=== PATIENT | female | born 1970 | race Caucasian/White ===

== ENCOUNTER 2017-03-24 04:06 | Observation (INO) | payer BC ==
[2017-03-24] MEDS ORDERED: NITROGLYCERIN SL TABS 0.4 MG TAB SUBLINGUAL STA (04:28)
[2017-03-24] MEDS ORDERED: ASPIRIN 81 MG PO STA (04:28)
[2017-03-24] MEDS ORDERED: NITROGLYCERIN OINT 1 INCH/GM PACKET TOPICAL STA (04:28)
--- NOTE | 2017-03-24 04:29 | ED ---
Chest Pain HPI - General Chief Complaint: Extremity Problem,Nontraumatic Stated Complaint: L arm pain, High BP Time Seen by Provider: 03/24/17 04:19 Source: patient Mode of arrival: ambulatory Limitations: no limitations - History of Present Illness Initial Comments: This patient is a 47-year-old woman who presents to be evaluate for pain that goes across her upper back and radiates into her left arm. The patient states that she has been having the pains intermittently for about a week. The pains had been isolated to her back. The pain became constant tonight before she came in to be seen here, and tonight has been radiating to the arm. In addition tonight she has had some associated diaphoresis and nausea. Patient states that she smokes about a pack per day for many years now. She has not previously had a stress test or heart catheterization. Complaint: other (Upper back pain) Onset/Timin -: week(s) Onset: during rest Pain Location: other (Upper back) Pain Radiation: LUE Consistency: intermittent Anginal Symptoms: nausea, diaphoresis - Related Data Home Medications Medication Instructions Recorded Confirmed Aspirin 81 mg PO ONCE 03/24/17 03/24/17 Cholecalciferol [Vitamin D3] 1,000 unit PO DAILY 03/24/17 03/24/17 Lisinopril-Hctz 10-12.5 mg 1 tab PO DAILY 03/24/17 03/24/17 [Zestoretic 10-12.5] Allergies Allergy/AdvReac Type Severity Reaction Status Date / Time No Known Allergies Allergy Verified 03/24/17 07:14 Review of Systems ROS Statement: Those systems with pertinent positive or pertinent negative responses have been documented in the HPI. ROS Other: All systems not noted in ROS Statement are negative. Constitutional: Denies: fever, chills, weakness Respiratory: Reports: dyspnea. Denies: cough, wheezes Cardiovascular: Reports: chest pain. Denies: palpitations, edema, syncope Gastrointestinal: Reports: nausea. Denies: abdominal pain, vomiting, diarrhea Genitourinary: Denies: dysuria, hematuria Musculoskeletal: Denies: back pain Skin: Denies: rash Neurological: Denies: headache, weakness, numbness EKG Findings - EKG Results: EKG: interpreted by ERMD, WNL, sinus rhythm (Rate 67 bpm), normal axis, normal QRS, normal ST/T, no acute changes Past Medical History Past Medical History: Hypertension History of Any Multi-Drug Resistant Organisms: None Reported Past Surgical History: Section Additional Past Surgical History / Comment(s): partial thyroidectomy Past Psychological History: No Psychological Hx Reported Smoking Status: Current every day smoker Past Alcohol Use History: None Reported Past Drug Use History: None Reported - Past Family History Father Family Medical History: Coronary Artery Disease (CAD), Liver Disease Additional Family Medical History / Comment(s): Father has end stage liver disease. He had cardiac stents placed when he was in his 70s Mother Family Medical History: CVA/TIA Additional Family Medical History / Comment(s): Mother had a CVA during gallbladder surgery when she was 68yrs old. She is still living. General Exam Limitations: no limitations General appearance: alert, in no apparent distress Head exam: Present: atraumatic, normocephalic Eye exam: Present: normal appearance. Absent: scleral icterus, conjunctival injection ENT exam: Present: normal oropharynx Neck exam: Present: normal inspection Respiratory exam: Present: normal lung sounds bilaterally. Absent: respiratory distress, wheezes, rales, rhonchi, stridor, chest wall tenderness Cardiovascular Exam: Present: regular rate, normal rhythm, normal heart sounds. Absent: systolic murmur, diastolic murmur, rubs, gallop GI/Abdominal exam: Present: soft. Absent: distended, tenderness, guarding, rebound Extremities exam: Present: normal inspection, normal capillary refill. Absent: pedal edema, calf tenderness Back exam: Present: normal inspection. Absent: CVA tenderness (R), CVA tenderness (L) Neurological exam: Present: alert Skin exam: Present: warm, dry, intact, normal color. Absent: rash Course Vital Signs 03/24/17 03/24/17 03/24/17 04:10 05:14 06:19 Temperature 97.5 F L Pulse Rate 85 64 67 Respiratory 18 29 H 17 Rate Blood Pressure 179/95 159/86 157/80 O2 Sat by Pulse 98 97 94 L Oximetry 03/24/17 03/24/17 03/24/17 07:03 07:49 09:08 Temperature 97.9 F Pulse Rate 72 80 78 Respiratory 18 16 16 Rate Blood Pressure 134/69 124/62 O2 Sat by Pulse 97 96 99 Oximetry Chest Pain MDM - MDM This patient is a 47-year-old woman presenting with pain across the upper back now radiating into her left arm. Tonight their are features that could be anginal. She does have risk factors for development of CAD, and patient will therefore be admitted for additional telemetry monitoring and cardiac enzymes. Disposition Clinical Impression: Left arm pain, Back pain Disposition: ADMITTED IP TO THIS HOSP Condition: Good
[2017-03-24 04:36] LABS: Basophils # (A) 0.1 k/uL (0-0.2); Basophils % (A) 1 %; Eosinophils # (A) 0.3 k/uL (0-0.7); Eosinophils % (A) 3 %; HCT 40.2 % (34.0-46.0); HGB 12.6 gm/dL (11.4-16.0); Lymphocytes # (A) 2.1 k/uL (1.0-4.8); Lymphocytes % (A) 28 %; MCH 24.9 pg (25.0-35.0); MCHC 31.3 g/dL (31.0-37.0); MCV 79.7 fL (80.0-100.0); Mean Platelet Volume 8.2; Monocytes # (A) 0.3 k/uL (0-1.0); Monocytes % (A) 4 %; Neutrophils # (A) 4.7 k/uL (1.3-7.7); Neutrophils % (A) 62 %; Platelet Count 241 k/uL (150-450); RBC 5.05 m/uL (3.80-5.40); RDW 13.4 % (11.5-15.5); WBC 7.6 k/uL (3.8-10.6)
--- NOTE | 2017-03-24 04:45 | XR ---
EXAM: XR Chest, 1 View CLINICAL HISTORY: Reason: chest pain TECHNIQUE: Frontal view of the chest. COMPARISON: No relevant prior studies available. FINDINGS: Lungs: Unremarkable. No consolidation. Pleural space: Unremarkable. No pneumothorax. Heart: Unremarkable. No cardiomegaly. Mediastinum: Unremarkable. Bones/joints: Unremarkable. IMPRESSION: No lobar consolidation or pulmonary edema.
[2017-03-24 04:48] LABS: ALT 36 U/L (9-52); AST 17 U/L (14-36); Albumin 3.9 g/dL (3.5-5.0); Alkaline Phosphatase 65 U/L (38-126); Anion Gap 9 mmol/L; Blood Urea Nitrogen 19 mg/dL (7-17); Calcium 9.4 mg/dL (8.4-10.2); Carbon Dioxide 23 mmol/L (22-30); Chloride 106 mmol/L (98-107); Glucose 105 mg/dL (74-99); Magnesium 1.7 mg/dL (1.6-2.3); Potassium 4.2 mmol/L (3.5-5.1); Sodium 138 mmol/L (137-145); Total Bilirubin 0.5 mg/dL (0.2-1.3); Total Protein 6.5 g/dL (6.3-8.2)
[2017-03-24 04:52] LABS: D-Dimer 0.47 mg/L FEU (<0.60)
[2017-03-24 04:57] LABS: INR 1.1 (<1.2); Partial Thromboplastin Time 23.1 sec (22.0-30.0); Prothrombin Time 10.5 sec (9.0-12.0)
[2017-03-24 05:24] LABS: Creatine Kinase 68 U/L (30-135)
[2017-03-24 05:37] LABS: Creatine Kinase MB 0.6 ng/mL (0.0-2.4); Troponin I <0.012 ng/mL (0.000-0.034)
[2017-03-24] MEDS ORDERED: MORPHINE SULFATE 5 MG/ML SYRINGE IV STA (06:15)
[2017-03-24] MEDS ORDERED: ONDANSETRON 4 MG/2 ML VIAL IVP STA (06:15)
[2017-03-24] MEDS ORDERED: MORPHINE SULFATE 4 MG/ML SYRINGE IV STA (06:15)
[2017-03-24] MEDS ORDERED: KETOROLAC 30 MG/ML 1 ML VIAL IVP STA (06:25)
[2017-03-24] MEDS ORDERED: NITROGLYCERIN SL TABS 0.4 MG TAB SUBLINGUAL PRN (06:38)
[2017-03-24] MEDS: LISINOPRIL-HCTZ 10-12.5 MG 1 EACH TAB PO SCH (09:32)
[2017-03-24 10:48] LABS: Creatine Kinase 55 U/L (30-135)
[2017-03-24 11:01] LABS: Creatine Kinase MB 0.5 ng/mL (0.0-2.4); Troponin I <0.012 ng/mL (0.000-0.034)
--- NOTE | 2017-03-24 12:33 | P.CRDCN ---
History of Present Illness Consult date: 03/24/17 Requesting physician: Korey Hawthorne Consult reason: chest pain Chief complaint: Chest pain History of present illness: This is a pleasant 47-year-old female with history of hypertension, borderline hyperlipidemia, nicotine dependence, she smokes approximately one pack of cigarettes per day, family history of premature coronary artery disease , both grandfathers had myocardial infarctions before the age of 50, her father just underwent angioplasty and stenting of the LAD. Patient presents to the hospital with symptoms of chest discomfort with radiation to the left arm and scapula area, patient states she became extremely diaphoretic and nauseated, for this reason she came to the emergency room for further evaluation. He states that she checked her blood pressure at home at that time which was noted to be 180/106. EKG on presentation here showed a normal sinus rhythm with nonspecific ST-T wave changes in the anterior leads. The pressure on arrival here 157/80, heart rate in the 60s, 94% on room air. Blood pressure this morning 124/70 with a heart rate in the 60s, 96% on room air. White blood cell count 7.6, hemoglobin 12.6, platelet count 241. D-dimer 0.4, potassium 4.2, BUN 19, creatinine 0.8. Troponins negative 2. Chest x-ray did not reveal any acute cardiopulmonary process. At the time of my examination this morning, patient states she has some mild upper back discomfort different than the discomfort she presented with. Past Medical History Past Medical History: Hypertension Additional Past Medical History / Comment(s): Toxemia with History of Any Multi-Drug Resistant Organisms: None Reported Past Surgical History: Section Additional Past Surgical History / Comment(s): partial thyroidectomy d/t goiter. Smoking Status: Current every day smoker - Past Family History Father Family Medical History: Coronary Artery Disease (CAD), Liver Disease Additional Family Medical History / Comment(s): Father has end stage liver disease. He had cardiac stents placed when he was in his 70s Mother Family Medical History: CVA/TIA Additional Family Medical History / Comment(s): Mother had a CVA during gallbladder surgery when she was 68yrs old. She is still living. Medications and Allergies Home Medications Medication Instructions Recorded Confirmed Type Aspirin 81 mg PO ONCE 03/24/17 03/24/17 History Cholecalciferol [Vitamin D3] 1,000 unit PO DAILY 12/28/17 12/28/17 History Lisinopril-Hctz 10-12.5 mg 1 tab PO DAILY 03/24/17 03/24/17 History [Zestoretic 10-12.5] Allergies Allergy/AdvReac Type Severity Reaction Status Date / Time No Known Allergies Allergy Verified 03/24/17 07:14 Physical Exam Vitals: Vital Signs Temp Pulse Pulse Resp BP BP Pulse Ox 03/24/17 09:32 97.7 F 60 16 125/73 96 03/24/17 09:08 97.9 F 78 16 99 03/24/17 07:49 80 16 124/62 96 03/24/17 07:03 72 18 134/69 97 03/24/17 06:19 67 17 157/80 94 L 03/24/17 05:14 64 29 H 159/86 97 03/24/17 04:10 97.5 F L 85 18 179/95 98 Intake and Output 03/23/17 03/24/17 03/24/17 22:59 06:59 14:59 Other: Weight 86.183 kg PHYSICAL EXAMINATION: HEENT: Head is atraumatic, normocephalic. Pupils equal, round. Neck is supple. There is no elevated jugular venous pressure. HEART EXAMINATION: Heart S1, S2 normal. No murmur or gallop heard. CHEST EXAMINATION: Lungs are clear with fine expiratory wheezes noted . No chest wall tenderness is noted on palpation or with deep breathing. ABDOMEN: Soft, nontender. Bowel sounds are heard. No organomegaly noted. EXTREMITIES: 2+ peripheral pulses with no evidence of peripheral edema and no calf tenderness noted. NEUROLOGIC patient is awake, alert and oriented -3. . Results 03/24/17 04:26 03/24/17 04:26 Cardiac Enzymes 03/24/17 03/24/17 03/24/17 Range/Units 04:26 04:26 09:59 AST 17 (14-36) U/L CK-MB (CK-2) 0.6 0.5 (0.0-2.4) ng/mL Troponin I <0.012 <0.012 (0.000-0.034) ng/mL Coagulation 03/24/17 Range/Units 04:26 PT 10.5 (9.0-12.0) sec APTT 23.1 (22.0-30.0) sec CBC 03/24/17 Range/Units 04:26 WBC 7.6 (3.8-10.6) k/uL RBC 5.05 (3.80-5.40) m/uL Hgb 12.6 (11.4-16.0) gm/dL Hct 40.2 (34.0-46.0) % Plt Count 241 (150-450) k/uL Comprehensive Metabolic Panel 03/24/17 Range/Units 04:26 Sodium 138 (137-145) mmol/L Potassium 4.2 (3.5-5.1) mmol/L Chloride 106 (98-107) mmol/L Carbon Dioxide 23 (22-30) mmol/L BUN 19 H (7-17) mg/dL Creatinine 0.80 (0.52-1.04) mg/dL Glucose 105 H (74-99) mg/dL Calcium 9.4 (8.4-10.2) mg/dL AST 17 (14-36) U/L ALT 36 (9-52) U/L Alkaline Phosphatase 65 (38-126) U/L Total Protein 6.5 (6.3-8.2) g/dL Albumin 3.9 (3.5-5.0) g/dL Current Medications Generic Name Dose Route Start Last Admin Trade Name Freq PRN Reason Stop Dose Admin Aspirin 325 mg 03/25/17 09:00 Aspirin PO DAILY [facility] Lisinopril/HCTZ 1 each 03/24/17 09:00 03/24/17 09:32 Zestoretic 10-12.5 PO Not Given DAILY [facility] Nitroglycerin 0.4 mg 03/24/17 06:38 Nitrostat SUBLINGUAL Q5M PRN Chest Pain Intake and Output 03/23/17 03/24/17 03/24/17 22:59 06:59 14:59 Other: Weight 86.183 kg 03/24/17 04:26 03/24/17 04:26 EKG Interpretations (text) EKG shows a normal sinus rhythm with nonspecific ST-T wave changes in the anterior leads Assessment and Plan Plan: Assessment and plan #1 chest discomfort, with radiation to the scapular area and down the left arm. Positive associated diaphoresis and nausea. Initial troponins negative 2. EKG shows normal sinus rhythm with nonspecific ST-T wave changes in the anterior leads #2 accelerated hypertension #3 history of hypertension #4 borderline hyperlipidemia, untreated #5 nicotine dependence, patient's smokes one package of cigarettes per day #6 family history of premature coronary artery disease Plan We will repeat an EKG. We will also request an echocardiogram with Doppler study be performed. Continue aspirin, lisinopril hydrochlorothiazide, obtain third troponin value. Patient's symptoms are somewhat concerning for acute coronary syndrome, based on her multiple risk factors and presentation , patient has been given the option to undergo stress testing or cardiac catheterization for definitive diagnosis, the risks and the benefits were explained to the patient in detail and she is willing to proceed. DNP note has been reviewed, I agree with a documented findings and plan of care. Patient was seen and examined.
--- NOTE | 2017-03-24 12:41 | ECHOF ---
Referral Reason:chest pain MEASUREMENTS -------- HEIGHT: 157.5 cm WEIGHT: 86.2 kg BP: 125/73 RVIDd: 2.7 cm (< 3.3) IVSd: 1.2 cm (0.6 - 1.1) LVIDd: 4.5 cm (3.9 - 5.3) LVPWd: 1.2 cm (0.6 - 1.1) IVSs: 1.8 cm LVIDs: 2.4 cm LVPWs: 2.0 cm LA Diam: 3.8 cm (2.7 - 3.8) LAESV Index (A-L): 26.50 ml/m Ao Diam: 2.8 cm (2.0 - 3.7) AV Cusp: 2.0 cm (1.5 - 2.6) MV EXCURSION: 14.317 mm (> 18.000) MV EF SLOPE: 68 mm/s (70 - 150) EPSS: 0.6 cm MV E Erick: 1.00 m/s MV DecT: 296 ms MV A Erick: 0.79 m/s MV E/A Ratio: 1.27 FINDINGS -------- Sinus rhythm. This was a technically adequate study. The left ventricular size is normal. There is borderline concentric left ventricular hypertrophy. Overall left ventricular systolic function is normal with, an EF between 55 - 60 %. The right ventricle is normal in size. Normal LA size by volume 22+/-6 ml/m2. The right atrium is normal in size. The aortic valve is trileaflet and appears structurally normal. There is trace mitral regurgitation. The tricuspid valve appears structurally normal. Trace/mild (physiologic) pulmonic regurgitation. The aortic root size is normal. The inferior vena cava is mildly dilated. Echo free space may represent effusion or a pericardial fat pad. There is no pericardial effusion. CONCLUSIONS -------- 1. Sinus rhythm. 2. This was a technically adequate study. 3. The left ventricular size is normal. 4. There is borderline concentric left ventricular hypertrophy. 5. Overall left ventricular systolic function is normal with, an EF between 55 - 60 %. 6. The right ventricle is normal in size. 7. Normal LA size by volume 22+/-6 ml/m2. 8. The right atrium is normal in size. 9. The aortic valve is trileaflet and appears structurally normal. 10. There is trace mitral regurgitation. 11. The tricuspid valve appears structurally normal. 12. Trace/mild (physiologic) pulmonic regurgitation. 13. The aortic root size is normal. 14. The inferior vena cava is mildly dilated. 15. Echo free space may represent effusion or a pericardial fat pad. ALUMINUM WELDER: Molly Helms RDCS
[2017-03-24] MEDS ORDERED: ACETAMINOPHEN TAB 325 MG TAB PO PRN (14:20)
--- NOTE | 2017-03-24 16:47 | P.HPIM ---
History of Present Illness Patient is a pleasant 47-year-old female with history of hypertension , borderline hyperlipidemia, nicotine dependence, she smokes approximately one pack of cigarettes per day, family history of premature coronary artery disease , both grandfathers had myocardial infarctions before the age of 50, her father just underwent angioplasty and stenting of the LAD. Patient presents to the hospital with symptoms of chest discomfort with radiation to the left arm and scapula area, patient states she became extremely diaphoretic and nauseated, for this reason she came to the emergency room for further evaluation. Assessment is not associated with food not nonpruritic in nature because of the risk factors and the some nonspecific ST-T wave changes in the EKG and typical nature of the chest pain cardiology is planning on cardiac catheterization had extensive discussion with the patient today. Review of Systems REVIEW OF SYSTEMS: CONSTITUTIONAL: No fever, no malaise, no fatigue. HEENT: No recent visual problems or hearing problems. Denied any sore throat. CARDIOVASCULAR: No orthopnea, PND, no palpitations, no syncope. PULMONARY: No shortness of breath, no cough, no hemoptysis. GASTROINTESTINAL: No diarrhea, no nausea, no vomiting, no abdominal pain. Normoactive bowel sounds. NEUROLOGICAL: No headaches, no weakness, no numbness. HEMATOLOGICAL: Denies any bleeding or petechiae. GENITOURINARY: Denies any burning micturition, frequency, or urgency. MUSCULOSKELETAL/RHEUMATOLOGICAL: Denies any joint pain, swelling, or any muscle pain. ENDOCRINE: Denies any polyuria or polydipsia. The rest of the 14-point review of systems is negative. Past Medical History Past Medical History: Hypertension Additional Past Medical History / Comment(s): Toxemia with History of Any Multi-Drug Resistant Organisms: None Reported Past Surgical History: Section Additional Past Surgical History / Comment(s): partial thyroidectomy d/t goiter. Smoking Status: Current every day smoker - Past Family History Father Family Medical History: Coronary Artery Disease (CAD), Liver Disease Additional Family Medical History / Comment(s): Father has end stage liver disease. He had cardiac stents placed when he was in his 70s Mother Family Medical History: CVA/TIA Additional Family Medical History / Comment(s): Mother had a CVA during gallbladder surgery when she was 68yrs old. She is still living. Medications and Allergies Home Medications Medication Instructions Recorded Confirmed Type Aspirin 81 mg PO ONCE 03/24/17 03/24/17 History Cholecalciferol [Vitamin D3] 1,000 unit PO DAILY 03/24/17 03/24/17 History Lisinopril-Hctz 10-12.5 mg 1 tab PO DAILY 03/24/17 03/24/17 History [Zestoretic 10-12.5] Allergies Allergy/AdvReac Type Severity Reaction Status Date / Time No Known Allergies Allergy Verified 03/24/17 07:14 Physical Exam Vitals: Vital Signs Temp Pulse Pulse Resp BP BP Pulse Ox 03/24/17 15:00 97 F L 80 16 126/64 95 03/24/17 14:50 60 16 03/24/17 09:32 97.7 F 60 16 125/73 96 03/24/17 09:08 97.9 F 78 16 99 03/24/17 07:49 80 16 124/62 96 03/24/17 07:03 72 18 134/69 97 03/24/17 06:19 67 17 157/80 94 L 03/24/17 05:14 64 29 H 159/86 97 03/24/17 04:10 97.5 F L 85 18 179/95 98 Intake and Output 03/24/17 03/24/17 03/24/17 06:59 14:59 22:59 Intake Total 480 Balance 480 Intake: Oral 480 Other: Weight 86.183 kg PHYSICAL EXAMINATION: GENERAL: The patient is alert and oriented x3, not in any acute distress. Well developed, well nourished. HEENT: Pupils are round and equally reacting to light. EOMI. No scleral icterus. No conjunctival pallor. Normocephalic, atraumatic. No pharyngeal erythema. No thyromegaly. CARDIOVASCULAR: S1 and S2 present. No murmurs, rubs, or gallops. PULMONARY: Chest is clear to auscultation, no wheezing or crackles. ABDOMEN: Soft, nontender, nondistended, normoactive bowel sounds. No palpable organomegaly. MUSCULOSKELETAL: No joint swelling or deformity. EXTREMITIES: No cyanosis, clubbing, or pedal edema. NEUROLOGICAL: Gross neurological examination did not reveal any focal deficits. SKIN: No rashes. Results CBC & Chem 7: 03/24/17 04:26 03/24/17 04:26 Labs: Abnormal Lab Results - Last 24 Hours (Table) 03/24/17 03/24/17 Range/Units 04:26 04:26 MCV 79.7 L (80.0-100.0) fL MCH 24.9 L (25.0-35.0) pg BUN 19 H (7-17) mg/dL Glucose 105 H (74-99) mg/dL Thrombosis Risk Factor Assmnt - Choose All That Apply Any of the Below Risk Factors Present?: Yes Each Factor Represents 1 point: Age 41-60 years, Obesity (BMI >25) Other Risk Factors: No Other congenital or acquired thrombophilia - If yes, enter type in comment: No Thrombosis Risk Factor Assessment Total Risk Factor Score: 2 Thrombosis Risk Factor Assessment Level: Low Risk Assessment and Plan Plan: 1 chest pain: Patient does have some tibial which is a of cardiac chest pain but because of which the patient may undergo cardiac catheterization today -Hypertension -Hyperlipidemia -Nicotine dependence For above-mentioned chronic medical problems patient will be resumed on appropriate home medications.
[2017-03-24 16:53] LABS: Creatine Kinase 53 U/L (30-135)
[2017-03-24 17:06] LABS: Creatine Kinase MB 0.4 ng/mL (0.0-2.4); Troponin I <0.012 ng/mL (0.000-0.034)
[2017-03-25 00:57] VITALS: RESP 18
[2017-03-25] MEDS ORDERED: ONDANSETRON 4 MG/2 ML VIAL IVP PRN (06:34)
[2017-03-25 06:45] LABS: Cholesterol 198 mg/dL (<200); HDL Cholesterol 38 mg/dL (40-60); LDL Cholesterol,Calculated 124 mg/dL (0-99); Triglycerides 178 mg/dL (<150)
[2017-03-25] MEDS ORDERED: ASPIRIN 325 MG TAB PO SCH (09:00)
[2017-03-25] MEDS: LISINOPRIL-HCTZ 10-12.5 MG 1 EACH TAB PO SCH (11:59)
[2017-03-25 12:07] VITALS: BP 110/62; PULSE 70; TEMP 98.1
--- NOTE | 2017-03-25 12:51 | ECHOS ---
STRESS ECHOCARDIOGRAM DATE OF SERVICE: 03/25/2017 INDICATIONS: Chest pain. MEDICATIONS: Lisinopril HCTZ BASELINE HEART RATE: 71 BASELINE BLOOD PRESSURE: 141/62 MAXIMUM HEART RATE: 155 MAXIMUM BLOOD PRESSURE: 180/69 85% MPHR: 146 100% MPHR: 172 METS: 9.7 MAXIMUM STAGE REACHED: III TOTAL EXERCISE TIME: 8 minutes CLINICAL INFORMATION: Baseline EKG revealed normal sinus rhythm without significant ST-T changes. Patient walked on standard Juan protocol for 8 minutes, achieved a maximal heart rate of 155 beats per minute which is more than 85% of predicted maximal. She developed fatigue and shortness of breath but did not have angina. EKG did not reveal any ST-segment changes to indicate ischemia. By EKG criteria, this is a negative stress test with fair exercise capacity. Baseline echo images revealed normal wall motion wall thickening of all segments. Because of suboptimal images, the patient received some Definity to improve the visualization of contractility. At peak exercise, there was good augmentation of left ventricular wall motion and wall thickening of all segments suggesting that there is no evidence of stress-induced ischemia on this study. IMPRESSION: 1. By EKG criteria, this is a negative stress test with fair exercise capacity. 2. Normal stress echocardiogram without evidence of ischemia. MMODL / IJN: [id number] /
--- NOTE | 2017-03-25 16:29 | P.DS ---
Providers Date of admission: 03/24/17 06:38 Attending physician: Korey Hawthorne Consults: 03/24/17 06:38 Consult Physician Routine Consulting Provider: Connor Perez Consult Reason/Comments: back pain radiating to arm Do you want consulting provider notified?: Yes Primary care physician: Lino Thomas Hospital Course: Patient was admitted secondary to chest pain,underwent stress test which was negative. Patient was cleared for discharge from cardiology perspective. 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 PHYSICAL EXAMINATION: GENERAL: The patient is alert and oriented x3, not in any acute distress. Well developed, well nourished. HEENT: Pupils are round and equally reacting to light. EOMI. No scleral icterus. No conjunctival pallor. Normocephalic, atraumatic. No pharyngeal erythema. No thyromegaly. CARDIOVASCULAR: S1 and S2 present. No murmurs, rubs, or gallops. PULMONARY: Chest is clear to auscultation, no wheezing or crackles. ABDOMEN: Soft, nontender, nondistended, normoactive bowel sounds. No palpable organomegaly. MUSCULOSKELETAL: No joint swelling or deformity. EXTREMITIES: No cyanosis, clubbing, or pedal edema. NEUROLOGICAL: Gross neurological examination did not reveal any focal deficits. SKIN: No rashes. for further details of chronic medical problems and the had another hospitalization course please refer to my dictation of H&P from yesterday Patient Condition at Discharge: Good Plan - Discharge Summary Discharge Rx Participant: No New Discharge Prescriptions: No Action Lisinopril-Hctz 10-12.5 mg [Zestoretic 10-12.5] 1 tab PO DAILY Cholecalciferol [Vitamin D3] 1,000 unit PO DAILY Aspirin 81 mg PO ONCE Discharge Medication List Aspirin 81 mg PO ONCE 03/24/17 [History] Cholecalciferol [Vitamin D3] 1,000 unit PO DAILY 03/24/17 [History] Lisinopril-Hctz 10-12.5 mg [Zestoretic 10-12.5] 1 tab PO DAILY 03/24/17 [History ] Follow up Appointment(s)/Referral(s): Connor Perez MD [STAFF PHYSICIAN] - 04/07/17 11:30 am Lino Thomas DO [Primary Care Provider] - 1-2 days Patient Instructions/Handouts: Chest Pain (DC) Discharge Disposition: HOME SELF-CARE
== END 2017-03-25 14:54 | disposition home or self-care (01) ==
LOC: EC 04:06 → 6SEL 06:38
PROVIDERS: ADMIT Hospitalist; ATTEND Hospitalist
DX: R07.89 Other chest pain (principal); M79.602 Pain in left arm; M54.9 Dorsalgia, unspecified; R11.0 Nausea; R61 Generalized hyperhidrosis; E78.5 Hyperlipidemia, unspecified; I10 Essential (primary) hypertension; F17.210 Nicotine dependence, cigarettes, uncomplicated; M54.6 Pain in thoracic spine; Z79.82 Long term (current) use of aspirin; Z79.899 Other long term (current) drug therapy; Z82.49 Family history of ischemic heart disease and other diseases of the circulatory system; Z82.3 Family history of stroke; E66.9 Obesity, unspecified; Z68.33 Body mass index [BMI] 33.0-33.9, adult
CPT/HCPCS: 96374; 99285; 36415; 93005; 93350; 93017; 93306; 85379; 80061; 80053; 82550; 82553; 83735; 84484; 85025; 85610; 85730; 71010; G0378 ×2; J2405; Q9957

== ENCOUNTER 2018-07-26 01:51 | Emergency (ER) | payer BC ==
[2018-07-26 02:05] VITALS: BP 140/80; PULSE 79; RESP 18; TEMP 98.3
[2018-07-26] MEDS ORDERED: KETOROLAC 60 MG/2 ML VIAL IM STA (02:49)
[2018-07-26] MEDS ORDERED: DIAZEPAM 5 MG/ML 2 ML INJ IM ONE (02:49)
[2018-07-26] MEDS ORDERED: predniSONE 20 MG TAB PO STA (02:49)
[2018-07-26] MEDS ORDERED: HYDROmorphone 1 MG/ML 1 ML SYRINGE IVP STA (03:30)
[2018-07-26] MEDS ORDERED: HYDROmorphone 1 MG/ML 1 ML SYRINGE IM STA (04:12)
--- NOTE | 2018-07-26 04:51 | ED ---
Neck Injury/Pain HPI - General Chief Complaint: Neck Pain/Injury Stated Complaint: Neck Pain Time Seen by Provider: 07/26/18 02:06 Mode of arrival: ambulatory Limitations: no limitations - History of Present Illness Initial Comments: This patient is a 48-year-old woman who presents to be evaluated for neck pain. She states that the symptoms had started approximately 12 hours ago when she coughed. The patient states that she felt like something had popped there. The patient states that she had gone to see her chiropractor, but the pain did not resolve. She also had tried using some ibuprofen at home. Patient denies weakness or numbness of the extremities, though it does feel like the pain radiates from the left side of the neck towards the left shoulder. MD Complaint: neck pain Onset/Timin -: hour(s) Place: home Radiation: left lateral Severity: severe Severity scale (1-10): 10 Quality: burning, aching Consistency: constant Improves With: none Worsens With: movement of neck Associated Symptoms: none Treatments Prior to Arrival: Ibuprofen - Related Data Home Medications Medication Instructions Recorded Confirmed Aspirin 81 mg PO ONCE 03/24/17 03/24/17 Cholecalciferol [Vitamin D3] 1,000 unit PO DAILY 03/24/17 03/24/17 Lisinopril-Hctz 10-12.5 mg 1 tab PO DAILY 03/24/17 03/24/17 [Zestoretic 10-12.5] Previous Rx's Medication Instructions Recorded Methocarbamol [Robaxin-750] 750 mg PO TID PRN #30 tablet 07/26/18 predniSONE 60 mg PO DAILY #30 tab 07/26/18 Allergies Allergy/AdvReac Type Severity Reaction Status Date / Time No Known Allergies Allergy Verified 07/26/18 02:05 Review of Systems ROS Statement: Those systems with pertinent positive or pertinent negative responses have been documented in the HPI. ROS Other: All systems not noted in ROS Statement are negative. Constitutional: Denies: fever, chills, weakness Respiratory: Denies: cough, dyspnea Cardiovascular: Denies: chest pain Gastrointestinal: Denies: abdominal pain Musculoskeletal: Reports: as per HPI Skin: Denies: rash Neurological: Denies: headache, weakness, numbness, paresthesias Past Medical History Past Medical History: Hypertension Additional Past Medical History / Comment(s): Toxemia with History of Any Multi-Drug Resistant Organisms: None Reported Past Surgical History: Section Additional Past Surgical History / Comment(s): partial thyroidectomy Past Psychological History: No Psychological Hx Reported Smoking Status: Current every day smoker Past Alcohol Use History: None Reported Past Drug Use History: None Reported - Past Family History Father Family Medical History: Coronary Artery Disease (CAD), Liver Disease Additional Family Medical History / Comment(s): Father has end stage liver disease. He had cardiac stents placed when he was in his 70s Mother Family Medical History: CVA/TIA Additional Family Medical History / Comment(s): Mother had a CVA during gallbladder surgery when she was 68yrs old. She is still living. General Exam Limitations: no limitations General appearance: alert, in no apparent distress Head exam: Present: atraumatic, normocephalic Neck exam: Present: normal inspection, full ROM. Absent: tenderness Respiratory exam: Present: normal lung sounds bilaterally. Absent: respiratory distress, wheezes, rales, rhonchi, stridor Cardiovascular Exam: Present: regular rate, normal rhythm, normal heart sounds, other (Upper extremity pulses are symmetric and normal in strength. Normal capillary refill). Absent: systolic murmur, diastolic murmur, rubs, gallop Extremities exam: Present: normal inspection, normal capillary refill. Absent: pedal edema, calf tenderness Neurological exam: Present: alert, reflexes normal. Absent: motor sensory deficit Skin exam: Present: warm, dry, intact, normal color. Absent: rash Course Vital Signs 07/26/18 02:02 Temperature 98.3 F Pulse Rate 79 Respiratory 18 Rate Blood Pressure 140/80 O2 Sat by Pulse 98 Oximetry Medical Decision Making - Medical Decision Making The patient did have relief of the pain following a number of medications for analgesia. The patient does not have any neurologic deficit, though she does have some cervical radiculopathy. Discussed appropriate follow-up and further care, as well as return parameters. Disposition Clinical Impression: Cervical radiculopathy Disposition: HOME SELF-CARE Condition: Good Instructions (If sedation given, give patient instructions): Cervical Radiculopathy (ED) Prescriptions: predniSONE 60 mg PO DAILY #30 tab Methocarbamol [Robaxin-750] 750 mg PO TID PRN #30 tablet PRN Reason: pain Is patient prescribed a controlled substance at d/c from ED?: No Referrals: Lino Thomas, [Primary Care Provider] - 1-2 days Allyson Kimball, [Doctor of Osteopathic Medicine] - 1-2 days
== END 2018-07-26 05:18 | disposition home or self-care (01) ==
LOC: EC 01:51
DX: M54.12 Radiculopathy, cervical region (principal); I10 Essential (primary) hypertension; F17.200 Nicotine dependence, unspecified, uncomplicated; Z79.82 Long term (current) use of aspirin; Z79.899 Other long term (current) drug therapy
CPT/HCPCS: 99283; 96374; 96372 ×3; J3360; J1885; J1170; J7512